=== PATIENT | male | born 1990 | race Caucasian/White ===

== ENCOUNTER 2018-10-19 22:50 | Emergency (ER) | payer OTHER ==
[~2018-10-19] VITALS: Ht 167.6 cm; Wt 81.6 kg
[2018-10-19 22:53] VITALS: BP_SYST 122
[2018-10-20 02:05] VITALS: BP_SYST 110
== END 2018-10-20 02:05 | disposition home or self-care (01) ==
LOC: SED 22:50
DX: S62.141A Displaced fracture of body of hamate [unciform] bone, right wrist, initial encounter for closed fracture (principal); W22.8XXA Striking against or struck by other objects, initial encounter; Y93.89 Activity, other specified; Y92.89 Other specified places as the place of occurrence of the external cause; Y99.8 Other external cause status
CPT/HCPCS: 99283